=== PATIENT | female | born 1980 | race Caucasian/White ===

== ENCOUNTER 2024-10-31 22:10 | Emergency (ER) | payer BC ==
[~2024-10-31] VITALS: Ht 165.1 cm; Wt 68.0 kg
[2024-10-31] MEDS ORDERED: LISI20TA30 PO (23:45)
[2024-10-31 23:55] VITALS: BP 147/78; TEMP 98; O2SAT 100
== END 2024-11-01 00:32 | disposition home or self-care (01) ==
LOC: ER 22:10
DX: I10 Essential (primary) hypertension (principal); R42 Dizziness and giddiness; R07.2 Precordial pain; R53.83 Other fatigue; F17.210 Nicotine dependence, cigarettes, uncomplicated; Z79.899 Other long term (current) drug therapy; Z60.2 Problems related to living alone
CPT/HCPCS: A4606; A4663